=== PATIENT | female | born 1990 | race Caucasian/White ===

== ENCOUNTER 2017-02-27 13:40 | Emergency (ER) | payer MEDICAID ==
--- NOTE | 2017-02-27 15:02 | ER Document Report ---
HPI - HPI Patient complains to provider of: left ear pain Onset: This morning Onset/Duration: Sudden Severity: Severe Pain Level: 5 Context: Patient presents to the emergency department with complaints of left ear pain. Reports that her ear started hurting couple days ago. She reports she had body aches and nonproductive cough fever. Reports she never took her temperature, just felt warm. Patient reports she laid down today with ear pain and felt like an explosion in her left ear and then it started bleeding. Reports the ear now feels better. Associated Symptoms: Body/muscle aches, Nonproductive cough, Fever Exacerbated by: Denies Relieved by: Denies Similar symptoms previously: No Recently seen / treated by doctor: No - REPRODUCTIVE Reproductive: REPORTS: : - DERM Skin Color: Normal Past Medical History - General Information source: Patient Last Menstrual Period: 3 week ago - Social History Smoking Status: Unknown if Ever Smoked Cigarette use (# per day): No Frequency of alcohol use: None Drug Abuse: None Lives with: Family Family History: Reviewed & Not Pertinent Patient has suicidal ideation: No Patient has homicidal ideation: No - Medical History Medical History: Negative Renal/ Medical History: Denies: Hx Peritoneal Dialysis Surgical Hx: Negative - Immunizations Hx Diphtheria, Pertussis, Tetanus Vaccination: Yes Vertical Provider Document - CONSTITUTIONAL Agree With Documented VS: Yes Exam Limitations: No Limitations General Appearance: WD/WN, No Apparent Distress - INFECTION CONTROL TRAVEL OUTSIDE OF THE [place] IN LAST 30 DAYS: No - HEENT HEENT: Atraumatic, Normocephalic. negative: Conjuctival Injection, Pharyngeal Erythema, Tympanic Membrane Red - left perforated eardrum, not actively bleeding , Tympanic Membrane Bulging - NECK Neck: Normal Inspection, Supple - RESPIRATORY Respiratory: Breath Sounds Normal, No Respiratory Distress O2 Sat by Pulse Oximetry: 98 - CARDIOVASCULAR Cardiovascular: Regular Rate - NEURO Level of Consciousness: Awake, Alert, Appropriate Motor/Sensory: No Motor Deficit - DERM Integumentary: Warm, Dry Course - Re-evaluation Re-evalutation: 02/27/17 15:35 Patient instructed on medications. Patient does have a primary care provider and was instructed to follow-up for recheck. She verbalized understanding. - Vital Signs Vital signs: Temp Pulse Resp BP Pulse Ox 98.3 F 87 22 H 98/60 L 98 02/27/17 14:05 02/27/17 14:05 02/27/17 14:05 02/27/17 14:05 02/27/17 14:05 Discharge - Discharge Clinical Impression: Left ear pain Perforated ear drum Qualifiers: Laterality: left Qualified Code(s): H72.92 - Unspecified perforation of tympanic membrane, left ear Condition: Stable Disposition: HOME, SELF-CARE Instructions: Amoxicillin ([facility]), Perforated Eardrum ([facility]), Oral Narcotic Medication ([facility]) Additional Instructions: *You have been evaluated for ear pain, perforated ear drum *Take medication as prescribed *Follow up with a primary care provider within one week for recheck *Return to ED for worsening condition, changes, needs Prescriptions: Amoxicillin Trihydrate [Amoxil 500 mg Capsule] 500 mg PO TID #30 capsule Hydrocodone/Acetaminophen [[place] 5-325 Tablet] 1 each PO QID #15 tablet
[2017-02-27] MEDS ORDERED: AMOXICILLIN TRIHYDRATE 500 MG CAPSULE PO ONE (15:28)
[2017-02-27] MEDS ORDERED: HYDROCODONE/ACETAMINOPHEN 5-325 MG TABLET PO ONE (15:28)
[2017-02-27 15:52] VITALS: BP 96/64
== END 2017-02-27 15:52 | disposition home or self-care (01) ==
LOC: ER 13:40
DX: H92.02 Otalgia, left ear (principal); H72.92 Unspecified perforation of tympanic membrane, left ear; M79.1 Myalgia; R05 Cough; R50.9 Fever, unspecified
CPT/HCPCS: 99282

== ENCOUNTER 2019-12-16 15:40 | Emergency (ER) | payer SELFPAY ==
[2019-12-16 16:10] VITALS: BP 123/77
--- NOTE | 2019-12-16 16:12 | ER Document Report ---
ED Medical Screen (RME) - General Chief Complaint: Medical Clearance Stated Complaint: MEDICAL CLEARANCE Time Seen by Provider: 12/16/19 16:08 Mode of Arrival: Ambulatory Information source: Patient Notes: Otherwise healthy 29-year-old female requesting medical clearance to go to [facility]. Patient states she needs help with placement. She states that she uses heroin. Patient alert, oriented, calm and cooperative. I have greeted and performed a rapid initial assessment of this patient. A comprehensive ED assessment and evaluation of the patient, analysis of test results and completion of the medical decision making process will be conducted by additional ED providers. I have specifically instructed the patient or family members with the patient to immediately return to any nursing staff should anything change in the patient's condition or with their chief complaint. TRAVEL OUTSIDE OF THE [place] IN LAST 30 DAYS: No - Related Data Allergies/Adverse Reactions: No Known Allergies Allergy (Verified 10/06/14 16:31) Past Medical History Renal/ Medical History: Denies: Hx Peritoneal Dialysis - Immunizations Hx Diphtheria, Pertussis, Tetanus Vaccination: Yes Physical Exam - Vital signs Vitals: Temp Pulse Resp BP Pulse Ox 97.7 F 98 18 123/77 98 12/16/19 16:09 12/16/19 16:09 12/16/19 16:09 12/16/19 16:09 12/16/19 16:09 Course - Vital Signs Vital signs: Temp Pulse Resp BP Pulse Ox 97.7 F 98 18 123/77 98 12/16/19 16:09 12/16/19 16:09 12/16/19 16:09 12/16/19 16:09 12/16/19 16:09
[2019-12-16 16:47] LABS: ABSOLUTE EOSINOPHILS # (AUTO) 0.2 10^3/uL (0.0-0.6); ABSOLUTE MONOCYTES (AUTO) 0.3 10^3/uL (0.1-1.4); ABSOLUTE NEUT (AUTO) 2.6 10^3/uL (1.7-8.2); BASOPHILS % (AUTO) 0.7 % (0-2); EOSINOPHILS % (AUTO) 3.5 % (0-6); HEMATOCRIT 38.5 % (36.0-47.0); HEMOGLOBIN 12.8 g/dL (12.0-15.5); LYMPHOCYTES % (AUTO) 38.6 % (13-45); MEAN CORPUSCULAR HEMOGLOBIN 28.8 pg (27.0-33.4); MEAN CORPUSCULAR HGB CONC 33.3 g/dL (32.0-36.0); MEAN CORPUSCULAR VOLUME 86 fl (80-97); MONOCYTES % (AUTO) 5.7 % (3-13); PLATELET COUNT 161 10^3/uL (150-450); RED BLOOD COUNT 4.46 10^6/uL (3.72-5.28); RED CELL DISTRIBUTION WIDTH 14.5 % (11.5-14.0); SEGMENTED NEUTROPHILS % (AUTO) 51.5 % (42-78); TOTAL CELLS COUNTED % (AUTO) 100 %; WHITE BLOOD COUNT 5.1 10^3/uL (4.0-10.5)
[2019-12-16 16:57] LABS: APPEARANCE,URINE SLIGHTLY-CLOUDY; BILIRUBIN,URINE NEGATIVE (NEGATIVE); COLOR,URINE AMBER; GLUCOSE, URINE NEGATIVE (NEGATIVE); KETONES,URINE NEGATIVE (NEGATIVE); LEUKOCYTE ESTERASE,URINE NEGATIVE (NEGATIVE); NITRITE,URINE NEGATIVE (NEGATIVE); PROTEIN,URINE 30 mg/dL (NEGATIVE); URINE SPECIFIC GRAVITY 1.027
[2019-12-16 17:07] LABS: ALBUMIN 4.1 g/dL (3.5-5.0); ALKALINE PHOSPHATASE 94 U/L (38-126); ANION GAP 9 (5-19); ASPARTATE AMINO TRANSFERASE 58 U/L (14-36); BILIRUBIN,DIRECT 0.3 mg/dL (0.0-0.4); BILIRUBIN,TOTAL 0.4 mg/dL (0.2-1.3); BLOOD UREA NITROGEN 8 mg/dL (7-20); CALCIUM 9.3 mg/dL (8.4-10.2); CARBON DIOXIDE 29 mmol/L (22-30); CHLORIDE 102 mmol/L (98-107); GLUCOSE 111 mg/dL (75-110)
[2019-12-16 17:08] LABS: ACETAMINOPHEN < 10 ug/mL (10-30); ALCOHOL < 10 mg/dL (NONE DETECTED); SALICYLATE < 1.0 mg/dL (2.0-20.0)
[2019-12-16 17:14] LABS: URINE BARBITURATES SCREEN NEGATIVE; URINE BENZODIAZEPINES SCREEN NEGATIVE; URINE COCAINE SCREEN NEGATIVE; URINE MARIJUANA (THC) SCREEN NEGATIVE; URINE METHADONE SCREEN NEGATIVE; URINE PHENCYCLIDINE SCREEN NEGATIVE
--- NOTE | 2019-12-16 18:24 | ER Document Report ---
HPI - HPI Time Seen by Provider: 12/16/19 16:08 Pain Level: Denies Notes: Otherwise healthy 29-year-old female requesting medical clearance to go to [facility]. Patient states she needs help with placement. She states that she uses heroin. Denies suicidal or homicidal ideation. - REPRODUCTIVE Reproductive: DENIES: : Past Medical History - General Information source: Patient - Social History Smoking Status: Current Every Day Smoker Drug Abuse: Heroin, Other Family History: Reviewed & Not Pertinent Patient has suicidal ideation: No Patient has homicidal ideation: No - Medical History Medical History: Negative Renal/ Medical History: Denies: Hx Peritoneal Dialysis Surgical Hx: Negative - Immunizations Hx Diphtheria, Pertussis, Tetanus Vaccination: Yes Vertical Provider Document - CONSTITUTIONAL Notes: PHYSICAL EXAMINATION: GENERAL: Well-appearing, well-nourished and in no acute distress. HEAD: Atraumatic, normocephalic. EYES: Pupils equal round extraocular movements intact, conjunctiva are normal. ENT: Nares patent NECK: Normal range of motion LUNGS: No respiratory distress Musculoskeletal: Normal range of motion NEUROLOGICAL: Normal speech, normal gait. PSYCH: Normal mood, normal affect. SKIN: Warm, Dry, normal turgor, no rashes or lesions noted. - INFECTION CONTROL TRAVEL OUTSIDE OF THE [place] IN LAST 30 DAYS: No Course - Re-evaluation Re-evalutation: Patient medically cleared for detox. Patient discharged home in stable condition with a copy of her labs. Patient will forward paperwork to [facility] where she plans on going. She has integrated family services/mobile crisis involved with her plan of care. - Vital Signs Vital signs: Temp Pulse Resp BP Pulse Ox 97.7 F 98 18 123/77 98 12/16/19 16:09 12/16/19 16:09 12/16/19 16:09 12/16/19 16:09 12/16/19 16:09 - Laboratory Result Diagrams: 12/16/19 16:20 12/16/19 16:20 Laboratory results interpreted by me: 12/16/19 12/16/19 12/16/19 16:20 16:20 16:20 RDW 14.5 H Glucose 111 H AST 58 H ALT 82 H Urine Protein 30 H Urine Urobilinogen 4.0 H Salicylates < 1.0 L Acetaminophen < 10 L Discharge - Discharge Clinical Impression: Encounter for medical clearance for patient hold Condition: Stable Disposition: HOME, SELF-CARE Additional Instructions: You were seen in the emergency department for medical clearance. I have printed a copy of your EKG and labs, you are medically cleared for treatment at any treatment facility of your choosing so long as they accept you and have a bed.
--- NOTE | 2019-12-16 21:40 | EKG REPORT ---
SEVERITY:- NORMAL ECG - SINUS RHYTHM : Confirmed by: Denice Borja MD 16-Dec-2019 21:40:03
== END 2019-12-16 18:30 | disposition home or self-care (01) ==
LOC: ER 15:40
DX: Z02.2 Encounter for examination for admission to residential institution (principal); F17.200 Nicotine dependence, unspecified, uncomplicated
CPT/HCPCS: 36415; 80053; 80307; 81001; 85025; 93005; 93010; 99283